=== PATIENT | male | born 1980 | race Caucasian/White ===

== ENCOUNTER 2022-09-30 08:55 | Emergency (ER) | payer OTHER ==
[~2022-09-30] VITALS: Ht 157.5 cm; Wt 62.4 kg
[2022-09-30 08:56] VITALS: BP 120/77; TEMP 99.3; O2SAT 98
[2022-09-30] MEDS ORDERED: LIDOCAINE W/EPINEPHRINE 1% 20ML VIAL SC ONE (11:25)
[2022-09-30] MEDS ORDERED: BOOSTRIX VACCINE (TETANUS/DIPHTH/ACEL. PERTUSSIS) 0.5ML SYR IM ONE (11:25)
== END 2022-09-30 11:55 | disposition home or self-care (01) ==
LOC: M ED 08:55
DX: S61.412A Laceration without foreign body of left hand, initial encounter (principal); Y28.9XXA Contact with unspecified sharp object, undetermined intent, initial encounter; Y92.89 Other specified places as the place of occurrence of the external cause; Y93.89 Activity, other specified; Y99.0 Civilian activity done for income or pay; F17.210 Nicotine dependence, cigarettes, uncomplicated